=== PATIENT | male | born 1980 | race Caucasian/White ===

== ENCOUNTER 2018-12-04 10:19 | Emergency (ER) | payer MEDICAID, SELFPAY ==
[2018-12-04 10:23] VITALS: BP 128/72; PULSE 108; RESP 17; TEMP 39.5; O2SAT 92; BMI 26.6
--- NOTE | 2018-12-04 10:42 | RAD_ITS ---
STUDY: X-RAY CHEST REASON FOR EXAM: Male, 38 years old. Fever 102.9, back pain, nausea and vomiting, weakness, fatigue. TECHNIQUE: PA and lateral views of the chest. COMPARISON: None. FINDINGS: There is ill-defined density in the mid and lower left lung field that may represent left upper lobe pneumonia extending into the lingula. Small calcified granuloma suggested in the right perihilar tissues. There is no demonstrated pleural abnormality. Normal size heart. Normal mediastinum and cameron. Normal visualized pulmonary arteries. Normal visualized aortic arch and descending thoracic aorta. Degenerative endplate osteophytes noted at T11-12. Normal visualized ribs, clavicles, and shoulders. There is no demonstrated abnormality of the visualized soft tissue structures of the upper abdomen. RAD/Chest PA and Lateral IMPRESSION: Left upper lobe pneumonic infiltrate. Electronically Signed: Sergio Corcoran MD at 13:29 EDT , Service support ,
--- NOTE | 2018-12-04 10:48 | ED.DCSUM_ITS ---
History of Present Illness Chief Complaint: Fever Informant: Patient Onset: Days Narrative: Patient presents to the ED with primary complaint of fever and myalgias. He states that about a week and a half ago, he developed nausea which progressively is gotten worse and he did have some vomiting. Several days ago, he developed myalgias, dry cough, and fever. He states that his fever has been around 101 ?F, however this morning it was around 103. He does state that his son's mother had similar symptoms. He denies any chest pain, shortness of breath, abdominal pain, constipation, diarrhea. He does note that he has noticed his urine being darker and he has been peeing more often. Past Medical History - Allergies and Home Meds Allergies/Adverse Reactions: Allergies azithromycin Allergy (Verified 12/04/18 10:23) Unknown Primary Care Physician: Care Physician,No Primary [Primary Care Provider] - Review of Systems General: Reports: Fever, Malaise Eyes: Denies: Visual changes - bilaterally, Diplopia ENT: Denies: Rhinorrhea, Sore throat Cardiovascular: Denies: Chest pain, Palpitations Respiratory: Reports: Cough. Denies: Sputum Gastrointestinal: Reports: Nausea, Vomiting. Denies: Abdominal pain, Diarrhea, Constipation Genitourinary: Reports: Frequency, - - Dark urine Musculoskeletal: Reports: Myalgias Skin: Denies: Rash, Wounds Neurological: Denies: Headache, Weakness, Numbness Physical Exam Vital Signs/Narrative: Vital Signs Temp Pulse Resp BP Pulse Ox 12/04/18 10:23 103.1 F H 108 H 17 128/72 H 92 General: Well nourished, Well developed, No Acute Distress Head: Normocephalic, Atraumatic Eyes: Perrl, EOMI ENT: No rhinorrhea, Dry mucous membranes Neck: Supple, Nontender Cardiovascular: Regular rate, Regular rhythm, No murmurs Respiratory: No distress, CTA bilaterally, Chest nontender, Wheezing - Mild expiratory Abdomen: Soft, Nontender, Nondistended, Normal bowel sounds. Negative for: Guarding, Rebound tenderness Back: Nontender, Normal Inspection Extremities: Nontender, No edema Skin: Normal color, No rash Neurological: Alert, Oriented x3, Cranial nerves II-XII grossly intact, Normal Strength, Normal Sensation Psychological: Normal affect, Normal Mood Diagnostic/Tx/Re-eval - Medical Decision Making Patient presents to the ED with fever, myalgias, dry cough, and urinary frequency. He was febrile upon arrival with a temperature of 103 ?F, however has not taken anything this morning for his fever. Last dose was last night. He did have some mild expiratory wheezing on physical exam. He states he does have a history of asthma, however it is well controlled and rarely uses his albuterol inhaler. Patient was given 2 L IV fluids and Toradol for symptomatic relief. Urinalysis indicates ketones with no signs of secondary infection. Rapid flu is negative. Chest x-ray indicates a lingular pneumonia. At this bruna e, patient will be treated with a course of doxycycline and was given a refill for his albuterol inhaler. He was educated on signs/symptoms to return to the ED. He is provided discharge instructions. Impression: Lingular pneumonia. Disposition: Home stable ED Disposition - Plan for ED Patient: Disposition: Home or Assisted Living Diagnosis: Pneumonia Instructions: PNEUMONIA (Adult) Prescriptions: Doxycycline 100 mg PO BID #14 cap Prescription Printed Albuterol Inhaler [Ventolin Hfa] 1 - 2 puff INHALATION Q4H PRN PRN #1 inhaler PRN Reason: Wheezing Prescription Printed Referrals: Care Physician,No Primary [Primary Care Provider] -
[2018-12-04] MEDS: Ipratropium/Albuterol Sulfate 3 ML AMPUL.NEB INHALATION (10:58)
[2018-12-04 10:59] VITALS: PULSE 107; RESP 16
[2018-12-04] MEDS: Ketorolac 15 MG/ML Vial IV (11:40)
[2018-12-04] MEDS: 0.9% Normal Saline 1,000 ML 999 ML IV ×2 (11:42→12:30)
[2018-12-04 11:50] LABS: Squamous Epithelial Cells - UA 0 SEEN /hpf (0-5)
[2018-12-04 11:54] LABS: Color, Urine Yellow (Yellow); Glucose, Dipstick Normal (Normal); Ketone-Dipstick 50 mg/dl (Negative); Leukocyte Esterase-Dipstick 25 /ul (Negative); Nitrite-Dipstick Negative (Negative); Occult Blood-Urine 10 /ul (Negative); Protein-Dipstick 100 mg/dl (Negative); Urine Clarity Clear (Clear); Urine Urobilinogen 4 mg/dl (Normal)
[2018-12-04 11:55] LABS: Urine Bilirubin Dipstick 1 mg/dL (Negative)
[2018-12-04 12:01] LABS: Bacteria RARE /hpf (None Seen); Mucous, Urine 2+ /hpf (<or=2+); Red Blood Cells-Urine 0-5 SEEN /hpf (0-5); White Blood Cells 0-5 SEEN /hpf (0-5)
[2018-12-04 12:26] VITALS: BP 122/73; PULSE 99; RESP 16; TEMP 37.8; O2SAT 97
[2018-12-04] MEDS: Doxycycline 100 MG CAPSULE PO (13:41)
[2018-12-04 13:43] VITALS: BP 130/79; PULSE 80; RESP 16; TEMP 37.4; O2SAT 92
[2018-12-04 13:53] VITALS: BP 122/87; PULSE 61; RESP 16; TEMP 37.4; O2SAT 92
== END 2018-12-04 13:54 | disposition home or self-care (01) ==
PROVIDERS: Emergency Provider Physician Assistant
DX: J18.9 Pneumonia, unspecified organism (principal); R35.0 Frequency of micturition; R82.998 Other abnormal findings in urine; R11.2 Nausea with vomiting, unspecified; J45.909 Unspecified asthma, uncomplicated
CPT/HCPCS: 71046; 81001; 87086; 87088; 87804; 94640; 96361; 96374; 99285; J7030; J7050; A4216

== ENCOUNTER 2018-12-06 06:39 | Inpatient (IN) | payer MEDICAID, SELFPAY ==
[2018-12-06 06:40] VITALS: BP 148/92; PULSE 102; RESP 21; TEMP 38.1; O2SAT 87; BMI 27.7
--- NOTE | 2018-12-06 07:14 | NURSING ---
02 AT 2LNC APPLIED.
--- NOTE | 2018-12-06 07:16 | EKG12_ITS ---
Test Reason : N AND V Blood Pressure : / mmHG Vent. Rate : 087 BPM Atrial Rate : 087 BPM P-R Int : 144 ms QRS Dur : 092 ms QT Int : 372 ms P-R-T Axes : 048 039 052 degrees QTc Int : 447 ms Normal sinus rhythm Low Voltage QRS (Limb Leads) Incomplete right bundle branch block Borderline ECG Confirmed by BARBARA MICHAEL, PRISCILLA ([id number]), manuscript editor AILYN GARCIA ([id number]) on 12/07/2018 12:05:37 PM Referred By: GOLD Confirmed By:PRISCILLA JIMENEZ MD
--- NOTE | 2018-12-06 07:16 | RAD_ITS ---
STUDY: X-RAY CHEST REASON FOR EXAM: Male, 38 years old. Cough and nausea TECHNIQUE: Single AP portable view of the chest. COMPARISON: 12/04/2018 FINDINGS: As compared to the most recent prior exam, there appears to be slightly increased patchy airspace disease bilaterally suggesting worsening pneumonia. There is no demonstrated pleural abnormality. Normal size heart. Normal mediastinum and cameron. Normal visualized pulmonary arteries. Normal visualized aortic arch and descending thoracic aorta. Normal visualized thoracic spine. Normal visualized ribs, clavicles, and shoulders. There is no demonstrated abnormality of the visualized soft tissue structures of the upper abdomen. RAD/Chest 1 View (Portable) IMPRESSION: Appearance of worsening bilateral pneumonia Electronically Signed: Oscar Darden DO at 8:27 EDT Tel , Service support ,
--- NOTE | 2018-12-06 07:20 | NURSING ---
NO OLD EKGS
--- NOTE | 2018-12-06 07:22 | ED.DCSUM_ITS ---
- ER Visit Summary Date of Service: 12/06/18 Chief Complaint: Nausea and vomiting, recent pneumonia diagnosis History of Present Illness: The patient is a 38 M who has had nausea and vomiting for the past 2 days. He was seen here 2 days ago and diagnosed with a lingular pneumonia. He states that he has been taking the antibiotics as prescribed is not getting any better. He still has a fever up to 100.6 degrees Fahrenheit. He has been having multiple episodes of nausea and vomiting throughout the day. Is not correlated with when he takes antibiotics. He has been using Tylenol and ibuprofen at home. He denies any dysuria or hematuria. He has had a history of pneumonia in the past. He has no lung problems and is not on home oxygen. Physical Examination: Vital signs reviewed. Temperature 100.6, heart rate 102. He is 87% on room air. HEENT exam is unremarkable. Heart is tachycardic and regular rhythm without murmurs. Lungs are clear to auscultation bilaterally. Abdomen soft nontender. Extremities have no edema. Skin exam reveals no rashes. His neurologic exam is normal. Test Results: EKG is sinus rhythm with a rate of 87. Incomplete right bundle branch block noted. Chest x-ray reveals a worsening bilateral infiltrates. White blood count 14.2, potassium 3.3. Hemoglobin 11.2. Urinalysis negative Emergency Department Course and Treatment: Patient was given IV fluids, Zofran. I will cover him with IV Levaquin. He has failed outpatient therapy. His x-ray is worse. He does meet sepsis criteria. He is also requiring some oxygen because he was 87% on room air. Patient was discussed with the hospitalist for admission. Treatment Plan: [] Disposition: admit Impression: Community-acquired pneumonia, sepsis, failure of outpatient therapy This note was generated with [employer] dictation software. It may contain incorrect words, spelling, and punctuation that were not noted in review of the chart prior to signing ED Disposition - Plan for ED Patient: Referrals: Care Physician,No Primary [Primary Care Provider] -
[2018-12-06 07:23] LABS: Mucous, Urine 0 SEEN /hpf (<or=2+)
[2018-12-06 07:26] LABS: Absolute Lymphocyte Count 0.79 X10^3/uL (0.83-4.51); Basophil# 0.03 X10^3/uL; Basophil% 0.2 % (0-1); Eosinophil# 0.06 X10^3/uL; Eosinophils% 0.4 % (0-5); Hematocrit 34.1 % (40-54); Hemoglobin 11.2 g/dL (13.0-16.5); Lymphocyte # 0.79 X10^3/ul (4.0); Lymphocyte % 5.6 % (19-41); Mean Corp Hgb Conc 32.8 g/dL (32-36); Mean Corpuscular Hgb 27.3 pg (27.0-32.0); Mean Corpuscular Volume 83.2 fL (80-94); Mean Platelet Vol. 9.4 fl (6.2-12.0); Monocyte# 0.25 X10^3/uL; Monocyte% 1.8 % (0-10); NRBC Flagged by Analyzer 0 % (0-5); Neutrophil # 13.01 X10^3/uL (2.7-7.7); Neutrophil % 91.6 % (47-70); Platelet Count 517 K/mm3 (150-450); RBC Distribution Width CV 12.3 % (11.6-14.6); RBC Distribution Width SD 37.5 fl (35.1-43.9); White Blood Count 14.2 K/mm3 (4.4-11.0)
[2018-12-06 07:28] LABS: Color, Urine Amber (Yellow); Glucose, Dipstick Normal (Normal); Ketone-Dipstick 50 mg/dl (Negative); Leukocyte Esterase-Dipstick 25 /ul (Negative); Nitrite-Dipstick Negative (Negative); Occult Blood-Urine 10 /ul (Negative); Protein-Dipstick 30 mg/dl (Negative); Urine Clarity Clear (Clear); Urine Urobilinogen 4 mg/dl (Normal)
[2018-12-06 07:30] LABS: International Normalized Ratio 1.1; Prothrombin Time (Protime)PT. 13.8 SECONDS (11.7-14.9)
[2018-12-06 07:31] LABS: Urine Bilirubin Dipstick 1 mg/dL (Negative)
[2018-12-06 07:31] LABS: Partial Thromboplast Time 37.7 Seconds (24.1-36.2)
[2018-12-06 07:41] LABS: ALB/GLOB Ratio 0.6 RATIO (0.9-2.4); AST(SGOT) 31 U/L (15-37); Alanine Aminotransfer ALT/SGPT 33 U/L (16-61); Albumin, Serum 2.8 g/dL (3.2-5.0); Alkaline Phosphatase 172 U/L (45-117); Anion Gap 8 (5-15); BUN 10 mg/dL (7-18); BUN/Creat Ratio 12.9 RATIO (10-20); Calcium,Total 8.7 mg/dL (8.5-10.1); Chloride 98 mmol/L (98-107); Creatinine, Serum 0.78 mg/dL (0.70-1.30); EST Glomerular Filtration Rate 118 mL/min (>60); Est Glom Filt Rate - Afr Amer 143 mL/min (>60); Estimated Creatinine Clearance 118.88 ml/min; Globulin 4.4 g/dL (2.2-4.2); Glucose 111 mg/dL (74-106); Potassium 3.3 mmol/L (3.5-5.1); Protein, Total 7.2 g/dL (6.4-8.2); Sodium Level 137 mmol/L (136-145)
[2018-12-06 07:42] LABS: Bacteria 1+ /hpf (None Seen); Red Blood Cells-Urine 0-5 SEEN /hpf (0-5); Squamous Epithelial Cells - UA 0-5 SEEN /hpf (0-5); White Blood Cells 0-5 SEEN /hpf (0-5)
[2018-12-06 08:16] VITALS: BP 127/82; PULSE 89; RESP 14; TEMP 38; O2SAT 88
[2018-12-06] MEDS: 0.9% Normal Saline 1,000 ML 250 ML IV (08:16)
[2018-12-06] MEDS: Ondansetron 4 MG/2 ML Vial IV ×2 (08:16→18:33)
[2018-12-06 09:10] LABS: Lactic Acid 1.1 mmol/L (0.4-2.0)
--- NOTE | 2018-12-06 09:28 | NURSING ---
DR BERMUDEZ CALLED BACK
[2018-12-06] MEDS: levoFLOXacin IV 750 MG/150 ML BAG 100 MG IV (09:47)
[2018-12-06 10:30] VITALS: BMI 27.3
[2018-12-06 10:33] VITALS: BMI 27.4
[2018-12-06 11:01] VITALS: BP 136/83; PULSE 95; RESP 18; TEMP 37.5; O2SAT 98
[2018-12-06] MEDS: 0.9% Normal Saline 1,000 ML 100 ML IV ×2 (11:52→21:57)
--- NOTE | 2018-12-06 12:10 | NURSING ---
Patient reports that he thought he had his doxycycline and a Suboxone pill with him in the ER. We went through his belongings he had in him room and they were not there. This RN called down to ER and spoke with Avinash who states he cleaned the room himself and there were not pills or bottles in the room. Avinash went back to check the room he was in again and reports the same. Information relayed to patient.
--- NOTE | 2018-12-06 13:42 | CASEMGMT ---
RN CM Assessment Introduced role of RN CM to patient.? Patient is alert, oriented and able?to participate in RN CM Assessment. ?Care providers, pharmacy, and demographics verified. Presentation: N/V x2 days. Here x2 days ago and Dz w/lingular PNA. Has been taking Abx with no improvement. Admit Dx: PNA Re-Admit: No Barriers/Issues: None PCP: None, PCP list given Specialists: None [facility] Insurance: [facility] Rx Benefit: Yes? ?LNOK: None- Patient did not feel comfortable listing one at this time. States Person to Notify that is listed- Lorenza Baird is his son's mother and would not want any medical information discussed with her. LW/HPOA: None, Would like information. PAPITO Graves informed. Living Arrangements:?Lives alone in a LL apartment, 2 steps to enter ADL?s: Independent with ambulation and ADLs Transportation: Drives and denies any transportation issues. DME: None HHC: None SNF: None Goal: Home and does not think will have any needs. Denies any questions, concerns or issues with DC planning at this time. Aware CM remains available for any emerging needs. DC PLAN: Home with no needs anticipated. Patient currently on . OLIVE Maria
--- NOTE | 2018-12-06 14:35 | HP.PCM_ITS ---
History of Present Illness Date of Admission: 12/06/18 Chief Complaint: Shortness of breath The patient is a 38 year old M with no significant past medical history who presents with pneumonia that was diagnosed 2 days ago as well as nausea and vomiting. He came to the ER initially and was discharged on p.o. doxycycline and he states that at that time he started having nausea and vomiting. He has been taking the antibiotics appropriately and his vomiting started the same time he started taking his doxycycline. In the ER he was found to have temperature of 100.6 as well as a heart rate of 102 and a white count of 14. He was given a dose of Levaquin since he is not tolerating the doxycycline and he is allergic to azithromycin. Past Medical History Allergies azithromycin Allergy (Verified 12/06/18 06:42) Unknown Home Medications: Ambulatory Orders Medication Instructions Recorded Albuterol Inhaler [Ventolin Hfa] 1 - 2 puff INHALATION Q4H PRN PRN 12/04/18 #1 inhaler Buprenorphine HCl/Naloxone HCl 6 mg SL 1400 12/04/18 [Suboxone 8 mg-2 mg Sl Film] Buprenorphine HCl/Naloxone HCl 8 mg SL BREAKFAST 12/04/18 [Suboxone 8 mg-2 mg Sl Film] Doxycycline 100 mg PO BID #14 cap 12/04/18 Surgical History: herniorrhaphy, total knee arthroplasty Smoking Status: Current every day smoker Tobacco Use: Vapor Alcohol: None Drugs: Heroin - Is on Suboxone - *Family History Maternal History Items: Stroke Paternal History Items: No pertinent history Review of Systems Constitutional: Reports: Fever. Denies: Chills, Weight Change HEENT: Denies: Head Aches, Sinus Congestion, Sinus Drainage Cardiovascular: Denies: Chest Pain, Palpitations Respiratory: Denies: Cough, Shortness of Breath, Shortness of breath at rest, Sputum production Gastrointestinal: Reports: Nausea, Vomiting. Denies: Abdominal Pain Genitourinary: Denies: Dysuria Musculoskeletal: Denies: Joint Pain, Joint Tenderness Skin: Denies: Rash, Wounds Neurological: Denies: Numbness, Tingling, Focal weakness Psychiatric: Denies: Anxiety, Depression Hematologic/ Lymphatic: Denies: Easy Bruising, Easy Bleeding VTE Information - Inpt Only VTE Present on Admission: No - Physical Exam General: Alert, Oriented x3, Cooperative, No apparent distress HEENT: Atraumatic, PERRLA, EOMI, Normocephalic Oral: Dry Mucosa Neck: Supple, No JVD Lungs: Clear to auscultation, Normal air movement, No rhonchi, No wheeze, No rales Cardiovascular: Regular rate, Regular Rhythm, Normal S1, Normal S2, No murmurs Abdomen: Soft, Non Tender, Non-Distended, No Hepato-splenomegaly Extremities: No edema, Capillary Refill Less than 3 Seconds Skin: No rashes, No breakdown Neurological: Neuro grossly intact, Sensory exam intact to light touch and pain Psych/Mental Status: Normal Affect, Appropriate Vital Signs Temp Pulse Resp BP Pulse Ox 99.5 F H 95 18 136/83 H 98 12/06/18 11:01 12/06/18 11:01 12/06/18 11:01 12/06/18 11:01 12/06/18 11:01 Oxygen Flow Rate (L/min) 3 Oxygen Delivery Method Nasal Cannula Weight: 175 lb 0.752 oz Body Mass Index (BMI) 27.3 Intake and Output for Last 24 Hours 12/04/18 12/05/18 12/06/18 23:59 23:59 23:59 Intake Total 1045.83 / 1045.83 Balance 1045.83 / 1045.83 Laboratory Tests Past 24 Hrs 12/06/18 12/06/18 12/06/18 06:50 06:50 06:50 WBC 14.2 H RBC 4.10 L Hgb 11.2 L Hct 34.1 L MCV 83.2 MCH 27.3 MCHC 32.8 RDW Std Deviation 37.5 RDW Coeff of Erasmo 12.3 Plt Count 517 H MPV 9.4 Immature Gran % (Auto) 0.400 Neut % (Auto) 91.6 H Lymph % (Auto) 5.6 L Vance % (Auto) 1.8 Eos % (Auto) 0.4 Baso % (Auto) 0.2 Absolute Neuts (auto) 13.0 H Absolute Lymphs (auto) 0.79 L Nucleated RBC % 0 PT 13.8 INR 1.1 APTT 37.7 H Sodium 137 Potassium 3.3 L Chloride 98 Carbon Dioxide 31.0 Anion Gap 8 BUN 10 Creatinine 0.78 Estim Creat Clear Calc 118.88 Est GFR (MDRD) Af Amer 143 Est GFR (MDRD) Non-Af 118 BUN/Creatinine Ratio 12.9 Glucose 111 H Lactic Acid Calcium 8.7 Total Bilirubin 0.70 AST 31 ALT 33 Alkaline Phosphatase 172 H Total Protein 7.2 Albumin 2.8 L Globulin 4.4 H Albumin/Globulin Ratio 0.6 L Urine Color Urine Clarity Urine pH Ur Specific [place] Urine Protein Urine Glucose (UA) Urine Ketones Urine Occult Blood Urine Nitrite Urine Bilirubin Urine Urobilinogen Ur Leukocyte Esterase Urine RBC Urine WBC Ur Squamous Epith Cells Urine Bacteria Urine Mucus 12/06/18 12/06/18 07:05 08:10 WBC RBC Hgb Hct MCV MCH MCHC RDW Std Deviation RDW Coeff of Erasmo Plt Count MPV Immature Gran % (Auto) Neut % (Auto) Lymph % (Auto) Vance % (Auto) Eos % (Auto) Baso % (Auto) Absolute Neuts (auto) Absolute Lymphs (auto) Nucleated RBC % PT INR APTT Sodium Potassium Chloride Carbon Dioxide Anion Gap BUN Creatinine Estim Creat Clear Calc Est GFR (MDRD) Af Amer Est GFR (MDRD) Non-Af BUN/Creatinine Ratio Glucose Lactic Acid 1.1 Calcium Total Bilirubin AST ALT Alkaline Phosphatase Total Protein Albumin Globulin Albumin/Globulin Ratio Urine Color Teresa Urine Clarity Clear Urine pH 5.0 Ur Specific [place] 1.020 Urine Protein 30 H Urine Glucose (UA) Normal Urine Ketones 50 H Urine Occult Blood 10 H Urine Nitrite Negative Urine Bilirubin 1 H Urine Urobilinogen 4 H Ur Leukocyte Esterase 25 H Urine RBC 0-5 SEEN Urine WBC 0-5 SEEN Ur Squamous Epith Cells 0-5 SEEN Urine Bacteria 1+ Urine Mucus 0 SEEN Assessment/Plan 1. Sepsis secondary to community-acquired pneumonia with a gram-positive organism/nausea/vomiting/hypokalemia -His nausea and vomiting is likely related to the doxycycline -We will transition to IV Levaquin and start with IV fluids -Lactic acid was only 1.1 on admission -He was hypokalemic with potassium 3.3 and this was replaced -Zofran PRN for nausea and vomiting 2. History of heroin addiction -He has been clean for several years now -Continue with the Suboxone DVT: Ambulation Code Visit Inpatient E&M: 91423 Init Hosp L2
--- NOTE | 2018-12-06 15:22 | CASEMGMT ---
Social Work Note SW received referral for advanced directives. SW will follow up with pt tomorrow regarding advanced directives. Sunitha Chung STREET SWEEPER, CHILLER HAND
[2018-12-06 16:19] VITALS: BP 135/92; PULSE 86; RESP 18; TEMP 37.3; O2SAT 94
[2018-12-06] MEDS: Buprenorphine HCl 2 MG TAB.SUBL 6 MG SL (18:46)
[2018-12-06] MEDS: Acetaminophen 325 MG Tablet 650 MG PO (18:51)
[2018-12-06 22:20] VITALS: BP 122/86; PULSE 76; RESP 16; TEMP 37.5; O2SAT 91
[2018-12-06] MEDS: 0.9% NaCl Peripheral Flush Adult/Peds IV (22:58)
[2018-12-07 00:20] VITALS: BP 123/81; PULSE 77; RESP 18; TEMP 37.2; O2SAT 97
[2018-12-07 05:34] LABS: Absolute Neutrophil Count 6.9 X10^3/uL (2.0-7.7); Basophil# 0.02 X10^3/uL; Basophil% 0.2 % (0-1); Eosinophil# 0.14 X10^3/uL; Eosinophils% 1.6 % (0-5); Hematocrit 31.8 % (40-54); Hemoglobin 10.2 g/dL (13.0-16.5); Mean Corp Hgb Conc 32.1 g/dL (32-36); Mean Corpuscular Hgb 27.3 pg (27.0-32.0); Mean Corpuscular Volume 85.3 fL (80-94); Mean Platelet Vol. 9.2 fl (6.2-12.0); Monocyte% 3.5 % (0-10); NRBC Flagged by Analyzer 0 % (0-5); Neutrophil # 6.91 X10^3/uL (2.7-7.7); Neutrophil % 81.5 % (47-70); Platelet Count 487 K/mm3 (150-450); RBC Distribution Width CV 12.3 % (11.6-14.6); RBC Distribution Width SD 38.4 fl (35.1-43.9); Red Blood Count 3.73 M/mm3 (4.6-6.2); White Blood Count 8.5 K/mm3 (4.4-11.0)
[2018-12-07] MEDS: Ondansetron 4 MG/2 ML Vial IV (05:39)
[2018-12-07] MEDS: 0.9% NaCl Peripheral Flush Adult/Peds IV (05:39)
[2018-12-07 05:52] LABS: Anion Gap 8 (5-15); BUN 7 mg/dL (7-18); BUN/Creat Ratio 12.9 RATIO (10-20); Calcium,Total 8.4 mg/dL (8.5-10.1); Chloride 107 mmol/L (98-107); Creatinine, Serum 0.54 mg/dL (0.70-1.30); EST Glomerular Filtration Rate 179 mL/min (>60); Est Glom Filt Rate - Afr Amer 216 mL/min (>60); Estimated Creatinine Clearance 171.71 ml/min; Glucose 105 mg/dL (74-106); Potassium 3.3 mmol/L (3.5-5.1); Sodium Level 143 mmol/L (136-145)
[2018-12-07 06:20] VITALS: BP 124/86; PULSE 85; RESP 16; TEMP 37.3; O2SAT 93
[2018-12-07] MEDS: 0.9% Normal Saline 1,000 ML 100 ML IV (07:58)
[2018-12-07] MEDS: Buprenorphine HCl 2 MG TAB.SUBL 8 MG SL (07:58)
[2018-12-07 08:08] VITALS: BP 137/86; PULSE 79; RESP 18; TEMP 36.9; O2SAT 94
[2018-12-07] MEDS: Acetaminophen 325 MG Tablet 650 MG PO (08:14)
--- NOTE | 2018-12-07 08:46 | PCM.PN.HOSP ---
Subjective: Breathing a little bit better, but still has nausea and some episodes of emesis this morning read he felt better last night Vitals/I&O's: Vital Signs Temp Pulse Resp BP Pulse Ox 98.4 F 79 18 137/86 H 94 12/07/18 08:08 12/07/18 08:08 12/07/18 08:08 12/07/18 08:08 12/07/18 08:08 Oxygen Flow Rate (L/min) 2 Oxygen Delivery Method Nasal Cannula Weight: 175 lb 0.752 oz Body Mass Index (BMI) 27.3 Intake and Output for Last 24 Hours 12/05/18 12/06/18 12/07/18 23:59 23:59 23:59 Intake Total 2445.83 / 2845.83 1400 / 1400 Output Total 50 / 50 Balance 2445.83 / 2845.83 1350 / 1350 General: Alert, Oriented x3, Cooperative, No apparent distress HEENT: Atraumatic, PERRLA, EOMI, Normocephalic Oral: Dry Mucosa Neck: Supple, No JVD Lungs: Clear to auscultation, Normal air movement, No rhonchi, No wheeze, No rales Cardiovascular: Regular rate, Regular Rhythm, Normal S1, Normal S2, No murmurs Abdomen: Soft, Non Tender, Non-Distended, No Hepato-splenomegaly Extremities: No edema, Capillary Refill Less than 3 Seconds Skin: No rashes, No breakdown Neurological: Neuro grossly intact, Sensory exam intact to light touch and pain Psych/Mental Status: Normal Affect, Appropriate Laboratory Results 12/06/18 08:10: Lactic Acid 1.1 12/07/18 05:20: WBC 8.5, RBC 3.73 L, Hgb 10.2 L, Hct 31.8 L, MCV 85.3, MCH 27.3, MCHC 32.1, RDW Std Deviation 38.4, RDW Coeff of Erasmo 12.3, Plt Count 487 H, MPV 9.2, Immature Gran % (Auto) 0.200, Neut % (Auto) 81.5 H, Lymph % (Auto) 13.0 L, Tucker % (Auto) 3.5, Eos % (Auto) 1.6, Baso % (Auto) 0.2, Absolute Neuts (auto) 6.9, Absolute Lymphs (auto) 1.10, Nucleated RBC % 0 12/07/18 05:20: Sodium 143, Potassium 3.3 L, Chloride 107, Carbon Dioxide 28.0, Anion Gap 8, BUN 7, Creatinine 0.54 L, Estim Creat Clear Calc 171.71, Est GFR (MDRD) Af Amer 216, Est GFR (MDRD) Non-Af 179, BUN/Creatinine Ratio 12.9, Glucose 105, Calcium 8.4 L Current Medications Acetaminophen (Tylenol) 650 mg PO Q6H PRN PRN PRN Reason: headache Last Admin: 12/07/18 08:14 Dose: 650 mg Documented by: Albuterol Sulfate (Ventolin Aerosols) 2.5 mg INHALATION Q4H PRN PRN PRN Reason: WHEEZING Buprenorphine HCl (Buprenorphine Hcl) 6 mg SL DAILY@1400 [facility] Last Admin: 12/06/18 18:46 Dose: 6 mg Documented by: Buprenorphine HCl (Buprenorphine Hcl) 8 mg SL BREAKFAST [facility] Last Admin: 12/07/18 07:58 Dose: 8 mg Documented by: Sodium Chloride () 1,000 mls @ 100 mls/hr IV .Q10H LIANET Last Admin: 12/07/18 07:58 Dose: 100 mls/hr Documented by: Levofloxacin (Levaquin Iv) 750 mg in 150 mls @ 100 mls/hr IV Q24 LIANET Ondansetron HCl (Zofran) 4 mg IV Q8H PRN PRN PRN Reason: NAUSEA/VOMITING Last Admin: 12/07/18 05:39 Dose: 4 mg Documented by: Sodium Chloride () 5 - 15 ml IV UD PRN PRN Reason: SALINE FLUSH Last Admin: 12/07/18 05:39 Dose: 10 ml Documented by: Medical Necessity - Tobacco Use Smoking Status: Current every day smoker Tobacco Use: Vapor Assessment/Plan 1. Sepsis secondary to community-acquired pneumonia with a gram-positive organism/nausea/vomiting/hypokalemia -His nausea and vomiting is likely related to the doxycycline -We will transition to IV Levaquin and start with IV fluids -Lactic acid was only 1.1 on admission -He was hypokalemic with potassium 3.3 and this was replaced -Zofran PRN for nausea and vomiting 2. History of heroin addiction -He has been clean for several years now -Continue with Suboxone DVT: Ambulation Code Visit Inpatient E&M: 60099 Subs Hosp L2
[2018-12-07] MEDS: Polyethylene Glycol 3350 17 GM PACKET PO (10:39)
[2018-12-07] MEDS: levoFLOXacin IV 750 MG/150 ML BAG 100 MG IV (10:39)
--- NOTE | 2018-12-07 11:03 | CASEMGMT ---
Social Work Note SW met with pt to discuss advanced directives. SW introduced self and role at [facility]. Pt is alert and orientated x3. Pt states that he just wanted the information and documents to take home to complete. SW provided pt with documents and social service rac card. Pt thanked this worker, denied additional needs or concerns at this time. Sunitha Chung DIRECTOR OF MATH, MERCHANDISE PRESENTATION MANAGER
--- NOTE | 2018-12-07 12:46 | DCINST_ITS ---
You will use the following diet at home:: Regular Your food should be the consistency of: Regular Your liquids should be the consistency of: Regular/Thin Discharge Activity: Return to Normal Activity Call your doctor if you observe: Fever of 101 or Higher, Shortness of breath, Dizziness, Fainting spells, Swelling in the ankles, Chest pain, Increased palpitations (irregular heartbeat) Allergies/Adverse Reactions: Allergies azithromycin Allergy (Verified 12/06/18 06:42) Unknown Medications to take at Discharge Albuterol Inhaler [Ventolin Hfa] 1 - 2 puff INHALATION Q4H PRN PRN #1 inhaler 12/04/18 Buprenorphine HCl/Naloxone HCl [Suboxone 8 mg-2 mg Sl Film] 6 mg SL 1400 12/04/18 Buprenorphine HCl/Naloxone HCl [Suboxone 8 mg-2 mg Sl Film] 8 mg SL BREAKFAST 12/04/18 Ondansetron [Zofran Odt] 4 mg PO Q8H PRN PRN #20 tab 12/07/18 levoFLOXacin tablet [Levaquin tablet] 750 mg PO DAILY #5 tab 12/07/18 The following prescriptions were given: levoFLOXacin tablet [Levaquin tablet] 750 mg PO DAILY #5 tab Transmission Status: Pending to [facility] Ondansetron [Zofran Odt] 4 mg PO Q8H PRN PRN #20 tab PRN Reason: Nausea Transmission Status: Pending to [facility] Primary Care Physician: Care Physician,No Primary [Primary Care Provider] - Please follow up with your Primary Care Physician in: 3-5 days Test Results: Test results from this visit will be discussed in further detail at your follow- up appointment, if applicable.
--- NOTE | 2018-12-07 12:47 | DS.PCM_ITS ---
Discharge Date and Diagnosis Date of Admission: 12/06/18 Date of Discharge: 12/07/18 Hospital Course and Treatment Imaging Results: CXR: IMPRESSION: Appearance of worsening bilateral pneumonia Consults: None Operations: None Procedures: None Summary of Care Provided: Per HPI: The patient is a 38 year old M with no significant past medical history who presents with pneumonia that was diagnosed 2 days ago as well as nausea and vomiting. He came to the ER initially and was discharged on p.o. doxycycline and he states that at that time he started having nausea and vomiting. He has been taking the antibiotics appropriately and his vomiting started the same time he started taking his doxycycline. In the ER he was found to have temperature of 100.6 as well as a heart rate of 102 and a white count of 14. He was given a dose of Levaquin since he is not tolerating the doxycycline and he is allergic to azithromycin. Hospital Course: 1. Sepsis secondary to community-acquired pneumonia with gram-positive organism/nausea and vomiting/[id number]-old male with history of heroin use currently on Suboxone therapy, presenting with bilateral pneumonia. He states that he started feeling sick last Wednesday and started having emesis on Wednesday. He initially presented to the ER on Wednesday where he was found to have bilateral pneumonia. He was discharged on doxycycline however his nausea and vomiting became worse and he was not feeling any better. He also developed a worse fever and therefore presented back to the ER on Wednesday. At that time a chest x-ray demonstrated a worsening pneumonia and he was admitted on IV Levaquin. Today he was feeling a little bit better, though he still has some nausea and vomiting and does not have much of an appetite, however he is requesting to go home because he is going stir crazy being here. Of note his white blood cell count did normalize to 8.5 from admission and he has been afebrile for over 24 hours. I discussed with him the risks of going home versus staying 1 more night, however he would still like to go home. I feel like his nausea and vomiting is related to his illness and that it should likely improve as his pneumonia improves and his appetite returns. I will discharge him on 5 more days of Levaquin to complete a 7-day course and dissolvable Zofran for his nausea and vomiting. I did explain to him that he is to find a primary care physician and that in the meantime if his symptoms do get worse he is to come kathy cerrato to the hospital. 2. His other medical diagnoses were evaluated and his home medications were continued where appropriate - Physical Exam Vital Signs Temp Pulse Resp BP Pulse Ox 98.4 F 79 18 137/86 H 94 12/07/18 08:08 12/07/18 08:08 12/07/18 08:08 12/07/18 08:08 12/07/18 08:08 Oxygen Flow Rate (L/min) 2 Oxygen Delivery Method Nasal Cannula Weight: 175 lb 0.752 oz Body Mass Index (BMI) 27.3 Intake and Output for Last 24 Hours 12/05/18 12/06/18 12/07/18 23:59 23:59 23:59 Intake Total 2445.83 / 2845.83 1400 / 1400 Output Total 50 / 50 Balance 2445.83 / 2845.83 1350 / 1350 Laboratory Tests Past 24 Hrs 12/07/18 12/07/18 05:20 05:20 WBC 8.5 RBC 3.73 L Hgb 10.2 L Hct 31.8 L MCV 85.3 MCH 27.3 MCHC 32.1 RDW Std Deviation 38.4 RDW Coeff of Erasmo 12.3 Plt Count 487 H MPV 9.2 Immature Gran % (Auto) 0.200 Neut % (Auto) 81.5 H Lymph % (Auto) 13.0 L Ponce % (Auto) 3.5 Eos % (Auto) 1.6 Baso % (Auto) 0.2 Absolute Neuts (auto) 6.9 Absolute Lymphs (auto) 1.10 Nucleated RBC % 0 Sodium 143 Potassium 3.3 L Chloride 107 Carbon Dioxide 28.0 Anion Gap 8 BUN 7 Creatinine 0.54 L Estim Creat Clear Calc 171.71 Est GFR (MDRD) Af Amer 216 Est GFR (MDRD) Non-Af 179 BUN/Creatinine Ratio 12.9 Glucose 105 Calcium 8.4 L Discharge Activity: Return to Normal Activity Call your doctor if you observe: Fever of 101 or Higher, Shortness of breath, Dizziness, Fainting spells, Swelling in the ankles, Chest pain, Increased palpitations (irregular heartbeat) Home Medications: Medications to take at Discharge Albuterol Inhaler [Ventolin Hfa] 1 - 2 puff INHALATION Q4H PRN PRN #1 inhaler 12/04/18 Buprenorphine HCl/Naloxone HCl [Suboxone 8 mg-2 mg Sl Film] 6 mg SL 1400 12/04/18 Buprenorphine HCl/Naloxone HCl [Suboxone 8 mg-2 mg Sl Film] 8 mg SL BREAKFAST 12/04/18 Ondansetron [Zofran Odt] 4 mg PO Q8H PRN PRN #20 tab 12/07/18 levoFLOXacin tablet [Levaquin tablet] 750 mg PO DAILY #5 tab 12/07/18 Following Prescrptions Were Given to Patient: levoFLOXacin tablet [Levaquin tablet] 750 mg PO DAILY #5 tab Transmission Status: Pending to [facility] Ondansetron [Zofran Odt] 4 mg PO Q8H PRN PRN #20 tab PRN Reason: Nausea Transmission Status: Pending to [facility] Primary Care Physician: Care Physician,No Primary [Primary Care Provider] - Please follow up with your Primary Care Physician in: 3-5 days Disposition: Home Minutes spent on discharge:: 35 Patient Condition:: Stable Medical Necessity - Tobacco Use Smoking Status: Current every day smoker Tobacco Use: Vapor Meaningful Use Info Meaningful Use Diagnoses (Choose all that apply): None applicable Code Visit Inpatient E&M: 08153 Disch Hosp
[2018-12-07 13:10] VITALS: BP 139/90; PULSE 95; RESP 18; TEMP 36.8; O2SAT 96
== END 2018-12-07 13:12 | disposition home or self-care (01) | DRG 720 ==
LOC: ED 07:09 → MS3 09:38
PROVIDERS: Admitting Provider Family Medicine; Emergency Provider Emergency Medicine; Visit Provider Family Medicine
DX: A41.9 Sepsis, unspecified organism (principal); J15.9 Unspecified bacterial pneumonia; F11.21 Opioid dependence, in remission; F17.290 Nicotine dependence, other tobacco product, uncomplicated; Z79.899 Other long term (current) drug therapy; E87.6 Hypokalemia; R35.0 Frequency of micturition; R82.998 Other abnormal findings in urine; J45.909 Unspecified asthma, uncomplicated
CPT/HCPCS: 36415; 71045; 71046; 80048; 80053; 81001; 83605; 85025; 85610; 85730; 87040; 87086; 87088; 87804; 93005; 94640; 96361; 96374; 99285; J7030; J7050; A4216; J2405

== ENCOUNTER 2019-05-16 21:01 | Emergency (ER) | payer MEDICAID, SELFPAY ==
[2019-05-16 21:02] VITALS: BP 129/71; PULSE 69; RESP 14; TEMP 36.8; O2SAT 100; BMI 24.5
[2019-05-16 21:27] VITALS: BP 129/71; PULSE 69; RESP 14; TEMP 36.8; O2SAT 100
[2019-05-16 22:02] LABS: Absolute Lymphocyte Count 1.92 X10^3/uL (0.83-4.51); Absolute Neutrophil Count 4.2 X10^3/uL (2.0-7.7); Basophil# 0.04 X10^3/uL; Basophil% 0.6 % (0-1); Eosinophil# 0.18 X10^3/uL; Eosinophils% 2.7 % (0-5); Hematocrit 41.6 % (40-54); Hemoglobin 13.4 g/dL (13.0-16.5); Lymphocyte # 1.92 X10^3/ul (4.0); Lymphocyte % 28.4 % (19-41); Mean Corp Hgb Conc 32.2 g/dL (32-36); Mean Corpuscular Volume 83.9 fL (80-94); Mean Platelet Vol. 9.2 fl (6.2-12.0); Monocyte# 0.38 X10^3/uL; Monocyte% 5.6 % (0-10); NRBC Flagged by Analyzer 0 % (0-5); Neutrophil # 4.23 X10^3/uL (2.7-7.7); Neutrophil % 62.4 % (47-70); Platelet Count 390 K/mm3 (150-450); RBC Distribution Width SD 39.6 fl (35.1-43.9); Red Blood Count 4.96 M/mm3 (4.6-6.2); White Blood Count 6.8 K/mm3 (4.4-11.0)
[2019-05-16] MEDS: 0.9% Normal Saline 1,000 ML 1000 ML IV (22:07)
[2019-05-16] MEDS: Famotidine 20 MG Tablet 40 MG PO (22:07)
[2019-05-16] MEDS: Ondansetron 4 MG/2 ML Vial IV (22:07)
[2019-05-16 22:08] VITALS: BP 129/71; PULSE 69; RESP 14; TEMP 36.8; O2SAT 100
[2019-05-16 22:18] LABS: ALB/GLOB Ratio 1.2 RATIO (0.9-2.4); AST(SGOT) 18 U/L (15-37); Alanine Aminotransfer ALT/SGPT 27 U/L (16-61); Albumin, Serum 4.1 g/dL (3.2-5.0); Alkaline Phosphatase 79 U/L (45-117); Anion Gap 6 (5-15); BUN 23 mg/dL (7-18); BUN/Creat Ratio 26.3 RATIO (10-20); Calcium,Total 9.2 mg/dL (8.5-10.1); Chloride 107 mmol/L (98-107); Creatinine, Serum 0.88 mg/dL (0.70-1.30); EST Glomerular Filtration Rate 103 mL/min (>60); Est Glom Filt Rate - Afr Amer 124 mL/min (>60); Estimated Creatinine Clearance 109.03 ml/min; Globulin 3.3 g/dL (2.2-4.2); Glucose 119 mg/dL (74-106); Lipase 84 U/L (73-393); Potassium 3.6 mmol/L (3.5-5.1); Protein, Total 7.4 g/dL (6.4-8.2); Sodium Level 141 mmol/L (136-145)
--- NOTE | 2019-05-16 22:39 | ED.DCSUM_ITS ---
History of Present Illness Chief Complaint: Nausea/Vomiting Informant: Patient - Abdominal Pain/Flank Pain Onset: Days Context: Gradual Onset Timing: Intermittent - Nausea/Vomiting/Emesis GI Symptom: Nausea, Vomiting Quality: Nonbilious. Negative for: Blood streaks, Coffee ground, Hematemesis - Diarrhea/Melena/Hematochezia GI Symptom: Negative for: Diarrhea, Melena, Hematochezia Narrative: Patient is a 38-year-old male with history of heroin abuse currently on Suboxone presenting with intermittent episodes of nausea and vomiting. Patient states is been going on for the past 5 days or so. He states he will wake up and feel nauseous and then vomit about an hour after eating or drinking. He states he was taking Zofran at home but is now not having relief with it. He is tried Zofran 4 times. He denies any associated dunia pain. He states that before this happens he does get cold sweats and his girlfriend says he looks pale. He has had normal bowel movements with no black or blood in them. He denies any diarrhea or constipation. Patient notes he is currently trying to wean his Sub oxone. He denies any increased thirst or urinary symptoms. He denies any chest pain, shortness of breath or difficulty breathing. He notes he has had increased pain in his left knee but attributes that to history of a bad knee and weaning his Suboxone. Patient denies any other complaints at this time. Past Medical History - Allergies and Home Meds Allergies/Adverse Reactions: Allergies azithromycin Allergy (Verified 12/06/18 06:42) Unknown Primary Care Physician: Brenden Vazquez MD [[facility]] - Past Medical History: None Surgical History: herniorrhaphy, total knee arthroplasty Smoking Status: Current every day smoker Alcohol: Sober Drugs: Heroin - remote - Family History Maternal Family History: Reports: Stroke Paternal Family History: Reports: No pertinent history Review of Systems General: Reports: Sweats. Denies: Chills, Fever Eyes: Denies: Visual changes - bilaterally, Diplopia ENT: Denies: Rhinorrhea, Sore throat Cardiovascular: Denies: Chest pain, Palpitations Respiratory: Denies: Dyspnea, Cough, Dyspnea on exertion Gastrointestinal: Reports: Nausea, Vomiting. Denies: Abdominal pain, Diarrhea, Melena, Hematochezia Genitourinary: Denies: Dysuria, Hematuria, Frequency Musculoskeletal: Denies: Back pain, Extremity Pain Skin: Denies: Rash, Wounds Neurological: Denies: Headache, Weakness, Numbness Physical Exam Vital Signs/Narrative: Vital Signs Temp Pulse Resp BP Pulse Ox 05/16/19 22:08 98.3 F 69 14 129/71 H 100 05/16/19 21:27 98.3 F 69 14 129/71 H 100 05/16/19 21:02 98.3 F 69 14 129/71 H 100 Inital Vital Signs reviewed: Yes General: Well nourished, Well developed, No Acute Distress Head: Normocephalic, Atraumatic Eyes: Perrl, EOMI ENT: Moist mucous membranes, No rhinorrhea, TM's clear. Negative for: Dry mucous membranes Neck: Supple, Nontender Cardiovascular: Regular rate, Regular rhythm, No murmurs Respiratory: No distress, CTA bilaterally, Chest nontender Abdomen: Soft, Nontender, Nondistended, Normal bowel sounds. Negative for: Guarding, Rebound tenderness Back: Nontender, Normal Inspection Extremities: Nontender, No edema Skin: Normal color, No rash Neurological: Alert, Oriented x3, Cranial nerves II-XII grossly intact, Normal Strength, Normal Sensation Psychological: Normal affect, Normal Mood Diagnostic/Tx/Re-eval Laboratory Data 05/16/19 05/16/19 21:25 21:25 WBC 6.8 RBC 4.96 Hgb 13.4 Hct 41.6 MCV 83.9 MCH 27.0 MCHC 32.2 RDW Std Deviation 39.6 RDW Coeff of Erasmo 13.0 Plt Count 390 MPV 9.2 Immature Gran % (Auto) 0.300 Neut % (Auto) 62.4 Lymph % (Auto) 28.4 Benton % (Auto) 5.6 Eos % (Auto) 2.7 Baso % (Auto) 0.6 Absolute Neuts (auto) 4.2 Absolute Lymphs (auto) 1.92 Nucleated RBC % 0 Sodium 141 Potassium 3.6 Chloride 107 Carbon Dioxide 28.0 Anion Gap 6 BUN 23 H Creatinine 0.88 Estim Creat Clear Calc 109.03 Est GFR (MDRD) Af Amer 124 Est GFR (MDRD) Non-Af 103 BUN/Creatinine Ratio 26.3 H Glucose 119 H Calcium 9.2 Total Bilirubin 0.40 AST 18 ALT 27 Alkaline Phosphatase 79 Total Protein 7.4 Albumin 4.1 Globulin 3.3 Albumin/Globulin Ratio 1.2 Lipase 84 - Medical Decision Making For intermittent episodes of vomiting. He is currently relatively asymptomatic. He appears nontoxic in no acute distress. He does not appear dehydrated. He has normal vital signs. He does have 1 sick contact on the day his symptoms started. Is possible he could have a viral illness. His abdomen is soft and nontender. He still passing gas. I do not think he requires imaging at this time. CBC, CMP and lipase are all normal. Patient is given IV fluids and Phenergan. On reevaluation he is resting comfortably. He will be discharged home with a prescription for Phenergan as Zofran was not helping with his symptoms at home. He is counseled that he should follow-up with her PCP and is given a referral for Dr. Vazquez. He is counseled that he should take Tylenol not ibuprofen for his knee pain as this might be worsening his GI symptoms. Patient is counseled on signs and symptoms requiring return to the emergency room. Patient verbalizes agreement and understand this plan. Patient discharged home in stable and improved condition. ED Disposition - Plan for ED Patient: Disposition: Home or Assisted Living Diagnosis: Vomiting Instructions: VOMITING (5y-Adult) Prescriptions: proMETHazine tablet [Phenergan tablet] 12.5 mg PO Q6H PRN PRN #15 tab PRN Reason: Nausea Prescription Printed Referrals: Brenden Vazquez MD [[facility]] -
[2019-05-16 23:05] VITALS: BP 140/78; PULSE 70; RESP 16; O2SAT 100
== END 2019-05-16 23:05 | disposition home or self-care (01) ==
PROVIDERS: Emergency Provider Emergency Medicine
DX: R11.2 Nausea with vomiting, unspecified (principal); R10.9 Unspecified abdominal pain; M25.562 Pain in left knee; Z79.899 Other long term (current) drug therapy; F17.200 Nicotine dependence, unspecified, uncomplicated
CPT/HCPCS: 80053; 83690; 85025; 96361; 96374; 99284; J7030; A4216; J2405

== ENCOUNTER 2021-06-04 10:04 | Emergency (ER) | payer BC, MEDICAID, SELFPAY ==
[2021-06-04 10:07] VITALS: BP 142/97; PULSE 94; RESP 17; TEMP 36.1; O2SAT 98; BMI 30.3
[2021-06-04] MEDS: Tetracaine 0.5% Ophthalmic Bottle 1 DRP LEFT EYE (10:42)
[2021-06-04] MEDS: Fluorescein 1 MG STRIP 1 STRIP LEFT EYE (10:43)
--- NOTE | 2021-06-04 10:49 | EDS_ITS ---
HPI History of Present Illness Chief Complaint: Eye Problem Informant: patient Onset/Context/Timing Location: Right Eye Onset: Today Context: Sudden Onset Timing: Continuous Current Severity: Mild Maximum Severity: Mild Associated Symptoms Associated Symptoms - Eyes: Foreign body sensation, Pain and Redness; Negative for Burning, Crusting, Drainage, Eyelid swelling, Itching and Matting History of injury: Yes and Foreign body Narrative Narrative: 40-year-old male was paining and thinks he got leg pain chip in his right eye. He does not wear glasses or contacts. Is never had eye surgery. He has no significant past medical history. Patient states that he flushed his eye well. He still has some discomfort. He has no visual change. Other than watering he has no discharge. Prior similar symptoms: No Recent Illness/Hospitalization: No PFSH PFSH Home Medications buprenorphine-naloxone 4 mg SL BREAKFAST 12/04/18 [History Last Taken Unknown] ondansetron 4 mg PO Q8H PRN PRN #20 tab 12/07/18 [Rx Last Taken Unknown] promethazine 12.5 mg PO Q6H PRN PRN #15 tab 05/16/19 [Rx Last Taken Unknown] Allergy/AdvReac Type Severity Reaction Status Date / Time azithromycin Allergy Unknown Verified 06/04/21 10:04 Social History Smoking Status: Current every day smoker ROS ROS ED ROS Narrative Denies recent illness. Review of Systems ROS Unobtainable: Denies due to encephalopathy Constitutional Constitutional ED: Denies fever(s) Eyes Eyes: Denies change in vision ENT ENT ED: Denies ear pain Cardiovascular Cardiovascular: Denies chest pain Respiratory/Chest Respiratory/Chest: Denies dyspnea Gastrointestinal Gastrointestinal: Denies abdominal pain Genitourinary Genitourinary ED: Denies dysuria Musculoskeletal Musculoskeletal: Denies myalgias Integumentary Denies rash Neurologic Neurologic: Denies headache(s) Psychiatric Psychiatric: Denies depression Endocrine Endocrinology: Denies polyuria Hematologic/Lymphatic Hematologic/Lymphatic: Denies easy bruising Allergic/Immunologic Allergic/Immunologic ED: Denies urticaria EXAM Physical Exam Narrative Exam Narrative: 40-year-old male no acute distress. Vital signs stable afebrile. H EENT exam right eye is slightly red and watering. There is no discharge. Pupils round reactive light extra motions are intact. Both the upper and lower lids are unremarkable. There is redness to the eye like irritation. I inverted both the upper and lower lids and there is no foreign body. I do not see any obvious foreign body with the naked eye. I did apply fluorescein and tetracaine and did a slit-lamp exam. There is a very very minor corneal abrasion at about 9:00. Lateral to the pupil. Does not involve his visual field. No foreign body noted. Otherwise exam unremarkable. There is no preauricular lymphadenopathy. There is no swelling of the upper or lower lids. Const Vital Signs: 06/04/21 10:07 Temperature 97.0 F L Temperature Source Temporal Pulse Rate 94 Respiratory Rate 17 Blood Pressure 142/97 H Blood Pressure Mean 112 Pulse Ox 98 Oxygen Delivery Method Room Air Positive well nourished and well developed; Negative for cachectic, contractures or unkempt General Appearance ED: well developed and NAD; Negative for unkempt, cachectic or contractures Nutritional Appearance: Negative for cachectic HEENT atraumatic Nose: external nose normal Eyes General Eye ED: Yes normal appearance of both eyes Visual Field: No peripheral vision loss, No central vision loss and No left visual field cut Eyelid: eyelids normal Conjunctiva: conjunctiva abnormal Sclera: sclera abnormal Cornea: cornea abnormal and fluorescein used Pupil: PERRL and accommodation reflex normal; Negative for dilated, fixed, irregular, not reactive or sluggish EOM: Negative for EOM abnormal or movement deficit Slit Lamp: slit lamp exam performed with fluorescein Neck no lymphadenopathy, supple and no JVD General: Negative for tenderness Resp normal respiratory effort, no retractions, no use of accessory muscles and clear to auscultation bilaterally Cardio regular rate, regular rhythm, S1 normal heart sound, S2 normal heart sound and no murmurs GI non-tender, non-distended and no masses Auscultation: normoactive bowel sounds Palpation: soft Back/Spine Negative for no CVA tenderness Extremity normal to inspection General Extremety ED: Negative for edema General Extremity: Negative for edema Neuro oriented x3 and moves all extremities Sensorium / Orientation: alert, oriented to person, oriented to place and oriented to time Motor Exam: strength 5/5 throughout Psych Appearance: Negative for unkempt Attitude: No agitated Mood & Affect: Negative for depressed or tearful Skin no wounds Lesions: no lesions Rashes: no rashes MDM MDM MDM Narrative Medical decision making narrative: 40-year-old gentleman with a prior foreign body in his right eye. Foreign body is no longer there. There is a minor corneal abrasion and some irritation of the sclera but no signs of infection. His pain resolved immediately once a placed tetracaine in his right eye. Patient be treated with gentamicin ointment. Tetracaine for pain. Glasses to prevent photophobia. Follow-up with [facility] if not improving or worse or return to the emergency department. Discharge Plan Triage Chief Complaint: Eye Problem ED Provider: Zeus Barnett Dx/Rx/DC Orders Clinical Impression: Injury of conjunctiva and corneal abrasion of right eye w/o FB Instructions: ED Corneal Abrasion Prescriptions: No Action buprenorphine-naloxone 1 EACH film 4 mg SL BREAKFAST RF: 0 ondansetron 4 MG tablet 4 mg PO Q8H PRN PRN (Reason: Nausea) Qty: 20 RF: 0 promethazine 25 MG tablet 12.5 mg PO Q6H PRN PRN (Reason: Nausea) Qty: 15 RF: 0 Primary Care Provider: Care Physician,No Primary Referrals: Dex Nolasco MD [STAFF PHYSICIAN] - 1-2 Days if not improving Care Physician,No Primary [Primary Care Provider] - Activity Restrictions/Additional Instructions: You had a foreign body in your eye which you washed out well but now there is a very small corneal abrasion and irritation to your eye. This should progr essively improve. The eye ointment is an antibiotic placed in your eye twice a day. For the next 3 days. Use it tetracaine which is the eyedrops to decrease the discomfort. You can use those up to the next 24 hours. Do not use it longer than that due to can prevent healing. Follow-up with the eye doctor if not improving. Return if worse. This should progressively get better. Disposition Disposition: Home, Self Care
== END 2021-06-04 11:11 | disposition home or self-care (01) ==
PROVIDERS: Emergency Provider Emergency Medicine; Visit Provider Emergency Medicine
DX: S05.01XA Injury of conjunctiva and corneal abrasion without foreign body, right eye, initial encounter (principal); F17.200 Nicotine dependence, unspecified, uncomplicated; Z79.899 Other long term (current) drug therapy
CPT/HCPCS: 99283

== ENCOUNTER → 2024-02-21 | Outpatient (CLI) | payer BC, SELFPAY ==
[2024-02-21 17:00] LABS: BUP Internal Control LINE = VALID (VALID)
[2024-02-21 17:01] LABS: Buprenorphine Drug Screen Positive (<10 ng/mL)
[2024-02-22 09:11] LABS: Amphetamine Urine VISTA NEGATIVE (<1000 ng/mL); Barbiturate Urine VISTA NEGATIVE (< 200 ng/mL); Benzodiazepine Urine VISTA NEGATIVE (< 200 ng/mL); Cocaine Urine VISTA NEGATIVE (< 300 ng/mL); Ecstacy Urine VISTA NEGATIVE (< 500 ng/mL); Methadone Urine VISTA NEGATIVE (< 300 ng/mL); PCP Urine VISTA NEGATIVE (< 25 ng/mL); THC Urine VISTA NEGATIVE (< 50 ng/mL); Vista UDS pH Range 5
== END | disposition home or self-care (01) ==
DX: F11.20 Opioid dependence, uncomplicated (principal)
CPT/HCPCS: 80307

== ENCOUNTER → 2024-04-07 | Outpatient (CLI) | payer BC, SELFPAY ==
[2024-04-07 17:36] LABS: Amphetamine Urine NEGATIVE (<1000 ng/mL); Barbiturate Urine VISTA NEGATIVE (< 200 ng/mL); Benzodiazepine Urine VISTA NEGATIVE (< 200 ng/mL); Cocaine Urine VISTA NEGATIVE (< 300 ng/mL); Ecstacy Urine VISTA NEGATIVE (< 500 ng/mL); Methadone Urine VISTA NEGATIVE (< 300 ng/mL); PCP Urine VISTA NEGATIVE (< 25 ng/mL); THC Urine VISTA NEGATIVE (< 50 ng/mL); Vista UDS pH Range 7
[2024-04-07 17:38] LABS: BUP Internal Control LINE = VALID (VALID); Buprenorphine Drug Screen Positive (<10 ng/mL)
== END | disposition home or self-care (01) ==
LOC: LAB 15:48
DX: F11.20 Opioid dependence, uncomplicated (principal)
CPT/HCPCS: 80307

== ENCOUNTER → 2024-05-08 | Outpatient (CLI) | payer BC, SELFPAY ==
[2024-05-08 21:47] LABS: Amphetamine Urine NEGATIVE (<1000 ng/mL); Barbiturate Urine NEGATIVE (< 200 ng/mL); Benzodiazepine Urine NEGATIVE (< 200 ng/mL); Buprenorphine Urine PRESUMPTIVE POSITIVE (< 200 ng/mL); Cocaine Urine NEGATIVE (< 300 ng/mL); Fentanyl, Urine NEGATIVE; Methadone Urine NEGATIVE (< 300 ng/mL); Opiates Urine NEGATIVE (< 300 ng/mL); Oxycodone, Urine NEGATIVE (< 100 ng/mL); PCP Urine NEGATIVE (< 25 ng/mL); THC Urine NEGATIVE (< 50 ng/mL)
== END | disposition home or self-care (01) ==
LOC: LAB 16:46
DX: F11.20 Opioid dependence, uncomplicated (principal)
CPT/HCPCS: 80307

== ENCOUNTER → 2024-06-08 | Outpatient (CLI) | payer BC, SELFPAY ==
[2024-06-08 20:16] LABS: Amphetamine Urine NEGATIVE (<1000 ng/mL); Barbiturate Urine NEGATIVE (< 200 ng/mL); Benzodiazepine Urine NEGATIVE (< 200 ng/mL); Buprenorphine Urine PRESUMPTIVE POSITIVE (< 200 ng/mL); Cocaine Urine NEGATIVE (< 300 ng/mL); Fentanyl, Urine NEGATIVE; Methadone Urine NEGATIVE (< 300 ng/mL); Opiates Urine NEGATIVE (< 300 ng/mL); Oxycodone, Urine NEGATIVE (< 100 ng/mL); PCP Urine NEGATIVE (< 25 ng/mL); THC Urine NEGATIVE (< 50 ng/mL)
== END | disposition home or self-care (01) ==
LOC: LAB 15:15
PROVIDERS: PCP Internal Medicine
DX: F11.20 Opioid dependence, uncomplicated (principal)
CPT/HCPCS: 80307

== ENCOUNTER → 2024-09-04 | Outpatient (CLI) | payer BC, SELFPAY | END | disposition home or self-care (01) | LOC: LAB 14:16 | PROVIDERS: PCP Internal Medicine | DX: F11.20 Opioid dependence, uncomplicated (principal) ==